=== PATIENT | male | born 1950 | race Caucasian/White ===

== ENCOUNTER 2024-01-08 08:25 | Observation (INO) ==
[2024-01-08] MEDS ORDERED: IOPAMIDOL 100 ML BOTTLE IV ONE (08:26)
[2024-01-08] MEDS: ASPIRIN 81 MG TAB.CHEW CHEWED ONE (08:51)
[2024-01-08 09:20] LABS: Basophils # (Auto) 0.02 K/mcL (0.00-0.30); Basophils % (Auto) 0.2 % (0.0-2.0); Eosinophils # (Auto) 0.05 K/mcL (0.00-0.70); Eosinophils % (Auto) 0.6 % (0.0-7.0); Hematocrit 39.4 % (40.1-51.0); Hemoglobin 13.3 g/dL (13.7-17.5); Lymphocytes # (Auto) 1.07 K/mcL (1.50-4.80); Mean Cell Volume 95.2 fL (80.0-100.0); Mean Corpuscular HGB Conc 33.8 g/dL (31.0-36.0); Mean Platelet Volume 10.4 fL (8.8-12.5); Monocytes # (Auto) 1.28 K/mcL (0.10-0.90); Monocytes % (Auto) 15.6 % (1.0-12.0); Neutrophils % (Auto) 70.5 % (38.0-78.0); Platelet Count 169 K/mcL (140-440); RBC 4.14 M/mcL (4.63-6.08); Red Cell Distribution Width 13.7 % (11.5-14.5); WBC 8.2 K/mcL (4.5-11.0)
[2024-01-08 09:36] LABS: INR 1.1 (0.9-1.1); Prothrombin Time 14.4 sec (11.9-14.5)
[2024-01-08 09:46] LABS: ALT/SGPT 14 U/L (<40); AST/SGOT 24 U/L (<40); Albumin/Globulin Ratio 1.3 (1.0-2.3); Alkaline Phosphatase 80 U/L (39-117); Blood Urea Nitrogen 16 mg/dL (8-23); Calcium 8.8 mg/dL (8.6-10.4); Carbon Dioxide 25 mmol/L (22-30); Chloride 104 mmol/L (96-108); Glomerular Filtration Rate 67; Glucose 99 mg/dL (70-105); Sodium 141 mmol/L (133-145)
[2024-01-08] MEDS: HEPARIN 5,000 UNIT/ML VIAL IV ONE (11:20)
[2024-01-08] MEDS: HEPARIN SOD,PORK IN 0.45% NACL 25,000 UNIT in PREMIX 1 BAG IV SCH (11:24)
[2024-01-08 13:38] LABS: Partial Thromboplastin Time 31.5 sec (20.0-37.0)
[2024-01-08] MEDS ORDERED: ONDANSETRON 4 MG/2 ML VIAL IV PRN (14:45)
[2024-01-08] MEDS ORDERED: ACETAMINOPHEN 325 MG TABLET PO PRN (14:45)
[2024-01-08] MEDS: 0.9 % SODIUM CHLORIDE 10 ML SYRINGE IV SCH (21:44)
[2024-01-09] MEDS: HEPARIN 5,000 UNIT/ML VIAL ONE (04:13)
[2024-01-09] MEDS: HEPARIN SODIUM,PORCINE/PF 500 UNIT/5 ML SYRINGE IV ONE (04:50)
[2024-01-09] MEDS: HEPARIN SOD,PORK IN 0.45% NACL 500 ML IV ONE (07:41)
[2024-01-09] MEDS: APIXABAN 5 MG TABLET PO SCH (09:56)
== END 2024-01-09 10:40 | disposition home or self-care (01) ==
LOC: MEDSUR 08:25 → ED 08:25 → MEDSUR 14:35
PROVIDERS: ADMIT Internal Medicine; ATTEND Internal Medicine